=== PATIENT | female | born 1950 | race Caucasian/White ===

== ENCOUNTER 2018-03-12 18:54 | Emergency (ER) | payer OTHER, MEDICARE ==
[2018-03-12 19:05] VITALS: BP 111/70; PULSE 90; RESP 20; TEMP 97; O2SAT 97
[2018-03-12 19:43] LABS: BASOPHILS % (AUTO) 1 % (0-3); EOSINOPHILS % (AUTO) 0 % (0-9); HEMATOCRIT 40 % (35-47); HEMOGLOBIN 13.3 gm/dl (12.0-15.5); LYMPHOCYTES % (AUTO) 6.37 % (10-50); MEAN CORPUSCULAR HEMOGLOBIN 29.8 pg (27.0-32.0); MEAN CORPUSCULAR HGB CONC 33.6 gm/dl (32.0-36.0); MEAN CORPUSCULAR VOLUME 89 fL (81-99); MONOCYTES % (AUTO) 4.8 % (0-12); NEUTROPHILS % (AUTO) 87.3 % (37-80)
[2018-03-12 19:52] LABS: CALCIUM 8.4 mg/dl (8.5-10.1); CARBON DIOXIDE 31.2 mEq/L (21-32); CREATININE 1.04 mg/dl (0.60-1.00); POTASSIUM 3.4 mMol/L (3.5-5.1)
[2018-03-12] MEDS ORDERED: POTASSIUM CHLORIDE 10 MEQ TER PO ONE (20:09)
[2018-03-12] MEDS ORDERED: POTASSIUM CHLORIDE 10 MEQ TER ONE (20:28)
== END 2018-03-12 20:50 | disposition home or self-care (01) | DRG 641 ==
LOC: ED 18:54
DX: E87.6 Hypokalemia (principal); E87.1 Hypo-osmolality and hyponatremia
CPT/HCPCS: 36415; 80048; 85025; 93005; 99282; A9270-GY